=== PATIENT | female | born 1975 | race Two or more races ===

== ENCOUNTER 2016-11-02 06:37 | Day surgery (SDC) | payer OTHER ==
[2016-11-02] MEDS ORDERED: ALBUT (07:24)
[2016-11-02] MEDS ORDERED: NORVASC10 M2 PO (07:25)
[2016-11-02] MEDS ORDERED: ALBUTEROL INH (07:25)
[2016-11-02] MEDS ORDERED: CULTURELLE1 EAC1 PO (07:26)
[2016-11-02] MEDS ORDERED: DIPHENHYDRAMINE PO (07:26)
[2016-11-02] MEDS ORDERED: EPIPEN0.3 MG/0.2 ×2 (07:27→07:42)
[2016-11-02] MEDS ORDERED: FETZIMA120 MG PO ×2 (07:28→07:37)
[2016-11-02] MEDS ORDERED: ALLEGRA ALLERG180 M1 PO ×2 (07:28→07:38)
[2016-11-02] MEDS ORDERED: HYDROCHLOROTHIA25 M1 PO ×2 (07:28→07:41)
[2016-11-02] MEDS ORDERED: OMEPRAZOLE40 M2 PO ×2 (07:29→07:38)
[2016-11-02] MEDS ORDERED: RANITIDINE HCL150 M3 PO ×2 (07:29→07:39)
[2016-11-02] MEDS ORDERED: TOPROL XL50 M1 PO ×2 (07:29→07:36)
[2016-11-02] MEDS ORDERED: TYLENOL WITH C1 EACH PO ×2 (07:30→07:41)
[2016-11-02] MEDS ORDERED: SYMBICORT 160-1 PUFF INH ×2 (07:30→07:41)
[2016-11-02] MEDS ORDERED: VITAMIN D50000 UNI2 PO ×2 (07:31→07:40)
[2016-11-02] MEDS ORDERED: MOBIC7.5 M2 PO ×2 (07:32→07:37)
[2016-11-02] MEDS ORDERED: NORVASC5 M2 PO (07:36)
[2016-11-02] MEDS ORDERED: TOPAMAX25 M3 PO (07:37)
[2016-11-02] MEDS ORDERED: BENADRYL25 M3 PO (07:38)
[2016-11-02] MEDS ORDERED: PROBIOTIC1 EAC8 PO (07:40)
[2016-11-02] MEDS ORDERED: ALBUT INH (07:42)
== END 2016-11-02 09:50 ==
LOC: ENDOS 06:37 → SHSC 06:39 → ENDOS 07:45 → SHSC 08:00 → ENDOS 08:20
PROC: 0DB88ZX Excision of Small Intestine, Via Natural or Artificial Opening Endoscopic, Diagnostic (ICD-10-PCS; principal; 2016-11-02)
PROC: 0DB78ZX Excision of Stomach, Pylorus, Via Natural or Artificial Opening Endoscopic, Diagnostic (ICD-10-PCS; 2016-11-02)
DX: K29.50 Unspecified chronic gastritis without bleeding (principal); I10 Essential (primary) hypertension; E78.00 Pure hypercholesterolemia, unspecified; E66.01 Morbid (severe) obesity due to excess calories; F32.9 Major depressive disorder, single episode, unspecified; J45.909 Unspecified asthma, uncomplicated; G47.30 Sleep apnea, unspecified; K44.9 Diaphragmatic hernia without obstruction or gangrene; K21.9 Gastro-esophageal reflux disease without esophagitis; Z99.89 Dependence on other enabling machines and devices; Z79.899 Other long term (current) drug therapy; Z98.818 Other dental procedure status

== ENCOUNTER 2016-11-04 05:39 | Day surgery (SDC) | payer OTHER ==
[~2016-11-04 05:39] MED LIST: ALBUT; ALBUT INH; ALBUTEROL INH; ALLEGRA ALLERG180 M1 PO; BENADRYL25 M3 PO; CULTURELLE1 EAC1 PO; DIPHENHYDRAMINE PO; EPIPEN0.3 MG/0.2; FETZIMA120 MG PO; HYDROCHLOROTHIA25 M1 PO; MOBIC7.5 M2 PO; NORVASC10 M2 PO; NORVASC5 M2 PO; OMEPRAZOLE40 M2 PO; PROBIOTIC1 EAC8 PO; RANITIDINE HCL150 M3 PO; SYMBICORT 160-1 PUFF INH; TOPAMAX25 M3 PO; TOPROL XL50 M1 PO; TYLENOL WITH C1 EACH PO; VITAMIN D50000 UNI2 PO
[2016-11-05 06:10] LABS: BLOOD UREA NITROGEN 12 mg/dl (6-24); CALCIUM 8.4 mg/dl (8.5-10.5); CHLORIDE 102 mmol/l (96-110); CREATININE 0.76 mg/dl (0.50-1.10); GLUCOSE 113 mg/dL (70-110); POTASSIUM 3.2 mmol/L (3.7-5.1); SODIUM 139 mmol/L (135-145); eGFR VALUE FOR BLACK >90 mL/Min
[2016-11-05 06:13] LABS: ANION GAP 11 mmol/L (0-20); CARBON DIOXIDE-VENOUS 29 mmol/L (22-32)
[2016-11-05] MEDS ORDERED: TYLENOL325 M2 PO (09:34)
== END 2016-11-05 09:55 ==
LOC: SRG 05:39 → SHSA 05:40 → ORW 07:30 → PACU 09:05 → CAR1 09:58
PROVIDERS: Nurse Practitioner
PROC: 0FT44ZZ Resection of Gallbladder, Percutaneous Endoscopic Approach (ICD-10-PCS; principal; 2016-11-04)
PROC: BF03YZZ Plain Radiography of Gallbladder and Bile Ducts using Other Contrast (ICD-10-PCS; 2016-11-04)
PROC: 0WQF4ZZ Repair Abdominal Wall, Percutaneous Endoscopic Approach (ICD-10-PCS; 2016-11-04)
DX: K43.9 Ventral hernia without obstruction or gangrene (principal); K82.8 Other specified diseases of gallbladder; I10 Essential (primary) hypertension; F41.9 Anxiety disorder, unspecified; J45.909 Unspecified asthma, uncomplicated; F32.9 Major depressive disorder, single episode, unspecified; G47.30 Sleep apnea, unspecified; Z68.43 Body mass index [BMI] 50.0-59.9, adult; Z91.040 Latex allergy status; Z79.899 Other long term (current) drug therapy
CPT/HCPCS: C1894; J0690; J1885; J2270; J2765; J7030; J7050; Q9966